=== PATIENT | female | born 1980 | race Caucasian/White ===

== ENCOUNTER 2017-03-07 10:20 | Day surgery (SDC) | payer OTHER ==
[~2017-03-07 10:20] MED LIST: RINGER'S SOLUTION,LACTATED 1,000 ML IV PRN
[2017-03-07 10:50] LABS: Hematocrit 38.4 % (37.0-47.0); Hemoglobin 13.1 gm/dL (12.5-16.0); Mean Cell Volume 89.9 fl (78-100); Mean Corpuscular Hemoglobin 30.7 pg (27-31); Mean Corpuscular Hgb Conc 34.1 g/dl (32-36); Neutrophil # 3.3 K/mm3 (1.3-6.0); Neutrophil % 53.2 % (42-75.0); Platelet Count 292 K/mm3 (150-450); Red Blood Count 4.27 M/mm3 (4.2-5.4); Red Cell Distribution Width 13.2 % (11.5-14.0); White Blood Count 6.1 K/mm3 (4.0-10.5)
[2017-03-07 11:10] LABS: Albumin * 4.1 gm/dl (3.4-5.0); Anion Gap 15.3 mmol/L (6.8-13.8); BUN/Creatinine Ratio 12.7 (9.0-21.6); Bilirubin, Total 0.7 mg/dL (0.0-1.1); Ca. Corrected For Albumin 8.6 mg/dL (8.4-10.2); Carbon Dioxide 25.7 mmol/L (24-32.6); Total Protein 7.9 gm/dL (6.2-8.2)
[2017-03-07] MEDS ORDERED: BUPIVACAINE HCL 50 ML VIAL IJ ONE ×2 (11:50)
[2017-03-07] MEDS ORDERED: RINGER'S SOLUTION,LACTATED 1,000 ML IV ONE (12:22)
[2017-03-07] MEDS ORDERED: RINGER'S SOLUTION,LACTATED 1,000 ML IV PRN (12:30)
[2017-03-07] MEDS ORDERED: oxyCODONE HCL/ACETAMINOPHEN 1 TAB TABLET PO ONE (12:30)
[2017-03-07] MEDS ORDERED: IBUPROFEN 800 MG TABLET PO ONE (12:30)
--- NOTE | 2017-03-07 12:30 | OR ---
Operative Report - Dictated Report Narrative: DATE OF PROCEDURE: 03/07/2017 PROCEDURE: 1. Laparoscopic bilateral salpingectomy. ANESTHESIA: General, endotracheal intubation. PREOPERATIVE DIAGNOSES: 1. Desiring sterilization POSTOPERATIVE DIAGNOSES: 1. Desiring sterilization, s/p laparoscopic bilateral salpingectomy SURGEON: Murray Kiser M.D. COMPUTER SECURITY COORDINATOR: Jennifer FINDINGS: 1. Normal anteverted uterus, sounded to 8 cm. 2. Normal bilateral ovaries and tubes. 3. A small free pelvic fatty nodule 1 x 1.5 cm in the anterior cul-de-sac. SPECIMENS: 1. right tube 2. Left tube 3. pelvic fatty nodule DRAINS: None. URINE OUTPUT: not measured BLOOD LOSS: 5 ml INTRAOPARATIVE IV FLUIDS: 1000 ml COMPLICATIONS: None. DESCRIPTION OF PROCEDURE: The patient consented prior to the operation and taken to the operating room. She was placed on the operating table supine. SCDs were placed on her lower extremities. General anesthesia was induced. She was repositioned in the dorsal lithotomy position. Exam under anesthesia revealed a normal anteverted uterus with no adnexal mass. The abdomen was prepped with Chloraprep and the vagina was prepped with Betadine. She was draped in the usual sterile fashion. A time-out procedure was conducted to confirm the correct patient for the correct procedure. After time-out, a bivalve speculum was placed into the vagina. The cervix was visualized. The vagina and the cervix were prepped with Betadine one more time. The anterior cervix was grasped with a single-tooth tenaculum. The uterus was sounded to 8 cm. The cervix was dilated, and a Zumi uterine manipulator was placed. The single tooth tenaculum and the bivalve speculum were removed. The surgeon then changed gloves and attention was paid to the abdomen. A small vertical incision was made at the upper edge of the umbilicus. A Veress needle was inserted into the abdominal cavity. Intraabdominal placement was confirmed with a saline drop test and with low entry pressure of 2 mmHg. The abdomen was insufflated with CO2 gas to an intraabdominal pressure of 15 mmHg. The Veress needle was removed. A 5 mm trocar with the laparoscope was inserted through the umbilicus incision into the abdomen. Intraabdominal placement was confirmed with the laparoscope. Survey of the entry site revealed no trauma to the underlying structures. Survey of the upper abdomen was unremarkable. The patient was then placed in Trendelenburg position. Two more trocars were placed in the lower abdomen. A left lower quadrant 5mm trocar was placed superior and medial to the anterior superior iliac spine to avoid the vessels and the nerves. An 8 mm suprapubic trocar was placed in the midline. All trocars were placed under the direct visualization of the laparoscope. Survey of the pelvis revealed the findings noted above. Attention was now turned to the right side. The right fallopian tube was elevated. The mesosalpinx was divided with the Thunderbeat. The division was carried to the cornue of the uterus. The right fallopian tube was divided at the cornue of the uterus. The right tube was removed through the 8 mm trocar. The left fallopian tube was elevated. The mesosalpinx was divided with the Thunderbeat. The division was carried to the cornue of the uterus. The left fallopian tube was divided at the cornue of the uterus and removed through the 8 mm trocar. The free fatty nodule in the anterior cul-de-sac was removed through the 8 mm trocar. There was hemostasis. The patient was taken out of Trendelenburg. The lower abdominal trocars were removed under direct visualization. The abdomen was deflated. The trocar at the umbilicus was removed with the laparoscope. The skin incisions were closed with 4-0 Monocryl suture and the incisions were covered with Steri-Strips. The incision was infiltrated with 2 to 3 cc of 0.25% Marcaine for post op pain management. The patient tolerated the procedure well. All counts were correct and the patient was taken to the recovery room in stable condition. Murray Kiser MD
[2017-03-07] MEDS ORDERED: SCOPOLAMINE HYDROBROMIDE 1.5 MG PATC TD ONE (14:17)
[2017-03-07] MEDS ORDERED: IBUPROFEN 800 MG TABLET ONE (15:17)
[2017-03-07] MEDS ORDERED: oxyCODONE HCL/ACETAMINOPHEN 1 TAB TABLET ONE (15:18)
[2017-03-07 15:53] VITALS: BP 112/73
== END 2017-03-07 10:21 | disposition home or self-care (01) ==
LOC: AMB 10:20
PROVIDERS: ATTEND Obstetrics & Gynecology
PROC: 0UT74ZZ Resection of Bilateral Fallopian Tubes, Percutaneous Endoscopic Approach (ICD-10-PCS; principal; 2017-03-07 11:30)
DX: Z30.2 Encounter for sterilization (principal); K58.9 Irritable bowel syndrome, unspecified; Z87.891 Personal history of nicotine dependence; Z68.29 Body mass index [BMI] 29.0-29.9, adult